=== PATIENT | female | born 1985 | race African-American/Black ===

== ENCOUNTER 2018-01-12 12:24 | Inpatient (IN) | payer MEDICARE, OTHER ==
[~2018-01-12] VITALS: Ht 165.1 cm; Wt 64.0 kg
[~2018-01-12 12:24] MED LIST: ACET-3161 PO; AMLO10TA80 PO; GABA-529 PO; HYDR-3280 PO; HYDR200T35 PO; P20 PO; SEVE800T8 PO
[2018-01-12] MEDS ORDERED: ONDANSETRON HCL 4MG/2ML VIAL IV STA (12:38)
[2018-01-12] MEDS ORDERED: METHYLPREDNISOLONE SOD SUCC 125 MG/2 ML VIAL IV STA (12:38)
[2018-01-12] MEDS ORDERED: PIPERACILLIN/TAZ 3.375G PREMIX 50 ML IV ONE (12:45)
[2018-01-12] MEDS ORDERED: HYDROCODONE/ACETAMINOPHEN 5/325MG TABLET PO ONE (12:45)
[2018-01-12] MEDS ORDERED: IPRATROPIUM/ALBUTEROL 0.5-3(2.5)MG/3ML NEB HHN ONE (12:45)
[2018-01-12 13:19] LABS: BASOPHILS % 3.7 % (0.0-2.0); EOSINOPHILS % 6.4 % (0.0-5.0); HEMATOCRIT. 24.1 % (36.0-48.0); HEMOGLOBIN. 7.9 g/dL (12.0-16.0); LYMPHOCYTES % 22.1 % (20.0-50.0); MEAN CORPUSCULAR HEMOGLOBIN 27.7 pg (28.0-32.0); MEAN CORPUSCULAR VOLUME 84.5 fL (81.0-99.0); MEAN PLATELET VOLUME 7.4 fl (7.4-10.4); MONOCYTES % 11.5 % (2.0-8.0); NEUTROPHILS % 56.3 % (40.0-76.0); PLATELET 361 x1000/uL (130-400); RED BLOOD CELL COUNT 2.85 mill/uL (4.2-5.4); RED CELL DISTRIBUTION WIDTH 21.3 % (11.6-14.6)
[2018-01-12 13:24] LABS: BG BASE EXCESS 7.3 mmol/L (-2.0-2.0); BG CARBOXYHEMOGLOBIN 3.2 % (0.5-1.5); BG DEOXYHEMOGLOBIN 0.7 % (0.0-5.0); BG FRACTION INSPIRED OXYGEN 99.8; BG METHEMOGLOBIN 0.3 % (0.0-1.5); BG OXYGEN SATURATION 99.3 % (92.0-98.5); BG OXYHEMOGLOBIN 95.8 % (94.0-97.0); BG PCO2 39.6 mmHg (35.0-45.0); BG PH 7.511 (7.350-7.450); BG PO2 214.2 mmHg (75.0-100.0); BG SAMPLE SITE LEFT BRACHIAL; BG TOTAL HEMOGLOBIN 7.2 g/dL (12.0-18.0); BG VENT MODE MASK - NRB
[2018-01-12 13:28] LABS: INR 1.3; PARTIAL THROMBOPLASTIN TIME 31.5 sec (23.4-31.0); PROTHROMBIN TIME 13.3 sec (9.4-11.6)
[2018-01-12 13:30] LABS: CHLORIDE 100 mEq/L (98-107)
[2018-01-12 13:35] LABS: CREATINE KINASE 51 IU/L (26-192)
[2018-01-12 13:37] LABS: HCG SCREEN NEGATIVE
[2018-01-12 16:24] LABS: BG BASE EXCESS 5.3 mmol/L (-2.0-2.0); BG BILEVEL POS AIRWAY PRESSURE 15/5; BG CARBOXYHEMOGLOBIN 2.4 % (0.5-1.5); BG DEOXYHEMOGLOBIN 1.6 % (0.0-5.0); BG FRACTION INSPIRED OXYGEN 40; BG HCO3 ACT 29.8 mmol/L (22.0-26.0); BG METHEMOGLOBIN 0.5 % (0.0-1.5); BG OXYGEN SATURATION 98.4 % (92.0-98.5); BG OXYHEMOGLOBIN 95.5 % (94.0-97.0); BG PH 7.449 (7.350-7.450); BG SAMPLE SITE LEFT BRACHIAL; BG TOTAL HEMOGLOBIN 8.1 g/dL (12.0-18.0); BG VENT MODE MASK - BIPAP; BG VENT RATE 14 set
[2018-01-12 19:04] LABS: BASOPHILS % 2.2 % (0.0-2.0); EOSINOPHILS % 1.8 % (0.0-5.0); HEMATOCRIT. 24.3 % (36.0-48.0); HEMOGLOBIN. 8.2 g/dL (12.0-16.0); LYMPHOCYTES % 10.3 % (20.0-50.0); MEAN CORPUSCULAR HEMOGLOBIN 28.5 pg (28.0-32.0); MEAN PLATELET VOLUME 7.1 fl (7.4-10.4); MONOCYTES % 2.6 % (2.0-8.0); NEUTROPHILS % 83.1 % (40.0-76.0); PLATELET 373 x1000/uL (130-400); RED BLOOD CELL COUNT 2.89 mill/uL (4.2-5.4); RED CELL DISTRIBUTION WIDTH 21.1 % (11.6-14.6)
[2018-01-12 23:30] VITALS: BP 149/111
[2018-01-13] VITALS (12 sets, daily range): BP systolic 131–158; BP diastolic 83–116
[2018-01-13] MEDS ORDERED: ACETAMINOPHEN 325MG TABLET PO PRN
[2018-01-13] MEDS ORDERED: IPRATROPIUM/ALBUTEROL 0.5-3(2.5)MG/3ML NEB INH PRN
[2018-01-13] MEDS ORDERED: MAGNESIUM/ALUMINUM HYDROXIDE/SIMETHICONE 30ML UDC PO PRN
[2018-01-13] MEDS ORDERED: ONDANSETRON HCL 4MG/2ML VIAL IV PRN
[2018-01-13] MEDS ORDERED: LORAZEPAM 0.5MG TABLET PO PRN
[2018-01-13] MEDS ORDERED: GUAIFENESIN 200MG/10ML SUGAR FREE UDC PO PRN
[2018-01-13] MEDS ORDERED: DIPHENHYDRAMINE 50MG/ML VIAL IV PRN
[2018-01-13] MEDS ORDERED: HYDROCODONE/ACETAMINOPHEN 5/325MG TABLET PO PRN
[2018-01-13] MEDS ORDERED: HYDRALAZINE 20MG/ML VIAL IV PRN (00:15)
[2018-01-13] MEDS: CLONIDINE 0.1MG TABLET PO PRN ×2 (00:41→21:14)
[2018-01-13] MEDS: HYDROCODONE/ACETAMINOPHEN 10/325MG TABLET PO PRN ×3 (02:06→14:28)
[2018-01-13] MEDS: LEVOTHYROXINE SODIUM 88MCG TABLET PO SCH (08:10)
[2018-01-13] MEDS: SEVELAMER CARBONATE 800 MG TABLET PO SCH ×3 (08:11→17:51)
[2018-01-13] MEDS: GABAPENTIN 100MG CAPSULE PO SCH ×2 (09:26→17:10)
[2018-01-13] MEDS: AMLODIPINE 10MG TABLET PO SCH (09:28)
[2018-01-13] MEDS: HYDROXYCHLOROQUINE SULFATE 200MG TABLET PO SCH (09:28)
[2018-01-13] MEDS: PREDNISONE 20MG TABLET PO SCH (09:28)
[2018-01-13] MEDS: SODIUM CHLORIDE 0.9% INJ 3ML FLUSH IVF SCH ×2 (14:00→21:14)
[2018-01-14] VITALS (14 sets, daily range): BP systolic 126–157; BP diastolic 63–105
[2018-01-14] MEDS: LEVOTHYROXINE SODIUM 88MCG TABLET PO SCH (06:45)
[2018-01-14] MEDS: HYDROCODONE/ACETAMINOPHEN 10/325MG TABLET PO PRN ×2 (07:03→14:02)
[2018-01-14] MEDS: SODIUM CHLORIDE 0.9% INJ 3ML FLUSH IVF SCH (07:04)
[2018-01-14] MEDS: CLONIDINE 0.1MG TABLET PO PRN (07:08)
[2018-01-14] MEDS: GABAPENTIN 100MG CAPSULE PO SCH ×2 (08:22→16:24)
[2018-01-14] MEDS: SEVELAMER CARBONATE 800 MG TABLET PO SCH ×3 (08:22→17:55)
[2018-01-14] MEDS: PREDNISONE 20MG TABLET PO SCH ×3 (09:00→13:27)
[2018-01-14] MEDS: HYDROXYCHLOROQUINE SULFATE 200MG TABLET PO SCH ×2 (09:00→13:24)
[2018-01-14] MEDS: AMLODIPINE 10MG TABLET PO SCH ×2 (09:30→14:02)
[2018-01-14 10:17] LABS: BASOPHILS % 1.3 % (0.0-2.0); EOSINOPHILS % 2.5 % (0.0-5.0); HEMATOCRIT. 22.2 % (36.0-48.0); HEMOGLOBIN. 7.1 g/dL (12.0-16.0); LYMPHOCYTES % 14.8 % (20.0-50.0); MEAN CORPUSCULAR HEMOGLOBIN 27.8 pg (28.0-32.0); MEAN CORPUSCULAR VOLUME 86.4 fL (81.0-99.0); MEAN PLATELET VOLUME 7.8 fl (7.4-10.4); MONOCYTES % 10.1 % (2.0-8.0); NEUTROPHILS % 71.3 % (40.0-76.0); PLATELET 449 x1000/uL (130-400); RED BLOOD CELL COUNT 2.56 mill/uL (4.2-5.4)
== END 2018-01-14 18:50 | disposition home or self-care (01) | DRG 291 ==
LOC: ER 12:35 → 5EST 16:07 → EDBEDREQTM 16:08 → EDBEDREQSVC 16:08 → EDBEDREQ 16:08 → ENRESERV 18:59
PROVIDERS: ADMIT Internal Medicine; ATTEND Internal Medicine
PROC: 30233N1 Transfusion of Nonautologous Red Blood Cells into Peripheral Vein, Percutaneous Approach (ICD-10-PCS; principal; 2018-01-12)
PROC: 5A09357 Assistance with Respiratory Ventilation, Less than 24 Consecutive Hours, Continuous Positive Airway Pressure (ICD-10-PCS; 2018-01-12)
PROC: 5A1D70Z Performance of Urinary Filtration, Intermittent, Less than 6 Hours Per Day (ICD-10-PCS; 2018-01-13)
PROC: 5A09357 Assistance with Respiratory Ventilation, Less than 24 Consecutive Hours, Continuous Positive Airway Pressure (ICD-10-PCS; 2018-01-14)
DX: I13.2 Hypertensive heart and chronic kidney disease with heart failure and with stage 5 chronic kidney disease, or end stage renal disease (principal); N18.6 End stage renal disease; M32.9 Systemic lupus erythematosus, unspecified; E11.22 Type 2 diabetes mellitus with diabetic chronic kidney disease; E46 Unspecified protein-calorie malnutrition; D64.9 Anemia, unspecified; I50.9 Heart failure, unspecified; E03.9 Hypothyroidism, unspecified; F17.210 Nicotine dependence, cigarettes, uncomplicated; J45.909 Unspecified asthma, uncomplicated; Z83.3 Family history of diabetes mellitus; Z99.2 Dependence on renal dialysis; Z79.899 Other long term (current) drug therapy; Z88.8 Allergy status to other drugs, medicaments and biological substances; Z91.018 Allergy to other foods; Z68.23 Body mass index [BMI] 23.0-23.9, adult
CPT/HCPCS: 36415; 36600; 71045; 80048; 80053; 82375; 82550; 82805; 83605; 83690; 83880; 84443; 84484; 84703; 85025; 85610; 85730; 86850; 86900; 86920; 87040; 93005; 94640; 94660; 99291; J0360; J2405; J2543; J2930; J7030; J7050; J7512; J7620; P9016